=== PATIENT | male | born 1940 | race Caucasian/White ===

== ENCOUNTER 2017-06-13 15:02 | Emergency (ER) | payer MEDICARE, BC ==
[~2017-06-13] VITALS: Ht 175.3 cm; Wt 81.8 kg
[~2017-06-13 15:02] MED LIST: AVODART 0.5MG0.5 MG PO; CAPOTEN100 MG PO; COUMADIN 77.5 MG/TAB PO; FLOMAX 0.40.4 MG/CAP PO; GLUCOPHAGE1000 MG PO; GLUCOTROL 5M5 MG/TAB PO; LASIX 40MG TABL40 MG PO; NORVASC 10MG10 MG PO; PERCOCET 325 MG1 TA2 PO; XALATAN EYE DROPS OD; ZOCOR 20MG20 MG PO; ZOFRAN 4MG T4 MG/TAB PO
[2017-06-13 15:07] VITALS: TEMP 97.1
[2017-06-13 15:32] LABS: MEAN CELL VOLUME 102 fl (80.0-100.0); MEAN CORPUSCULAR HGB CONC 32 g/dl (33.0-37.0); MEAN PLATELET VOLUME 9.7 fl (7.4-10.4); PLATELET COUNT 272 K/mm3 (130-400); RED BLOOD COUNT 3.15 M/mm3 (4.20-5.60)
[2017-06-13 15:37] LABS: HEMOGLOBIN 10.2 g/dl (13.5-18.0); MEAN CORPUSCULAR HEMOGLOBIN 32 pg (27.0-31.0)
[2017-06-13 15:38] LABS: ADD PATHOLOGY DIFF REVIEW NO; WHITE BLOOD COUNT 32.4 K/mm3 (4.8-10.8)
[2017-06-13 15:43] LABS: INR 2.9 (0.8-3.0); PROTHROMBIN TIME 33.1 SECONDS (9.7-12.8)
[2017-06-13 15:50] LABS: ADJUSTED CALCIUM 8.8 mg/dL (8.4-10.2); ALBUMIN 4.6 gm/dL (3.5-5.0); ANISOCYTOSIS 3+; BAND 1 % (0-10); BILIRUBIN,TOTAL 0.7 mg/dL (0.0-1.0); CALCIUM 9.3 mg/dL (8.4-10.2); CREATININE, serum 0.91 mg/dL (0.66-1.25); LYMPHOCYTE 88 % (20.0-51.0); NEUTROPHILS 11 % (42.0-75.2); PLATELET ESTIMATE NORMAL (NORMAL); POIKILOCYTOSIS 2+; POTASSIUM 4.4 mmol/L (3.4-5.0); TOTAL CELLS COUNTED 100
[2017-06-13 16:02] LABS: TROPONIN-I 0.017 ng/mL (0.000-0.034)
[2017-06-13] MEDS ORDERED: NORVASC 10MG10 MG PO (16:20)
[2017-06-13] MEDS ORDERED: COREG 6.256.25 MG/TA PO (16:21)
[2017-06-13] MEDS ORDERED: PLAVIX 75MG TAB75 MG PO (16:22)
[2017-06-13] MEDS ORDERED: VASOTEC 10M10 MG/TAB PO (17:55)
[2017-06-13] MEDS ORDERED: LASIX 40MG TABL40 MG PO (17:56)
[2017-06-13 20:04] VITALS: BP 173/106; PULSE 80
== END 2017-06-13 20:06 | disposition short-term general hospital (02) ==
LOC: COL.ER 15:02
PROVIDERS: Family Medicine
DX: R06.02 Shortness of breath (principal); R06.2 Wheezing; C76.0 Malignant neoplasm of head, face and neck
CPT/HCPCS: A4314; J1940; J2270

== ENCOUNTER → 2019-02-12 | Outpatient (CLI) | payer MEDICARE, BC ==
[~2019-02-12] MED LIST changes: +COREG 6.256.25 MG/TA PO; +MAGNESIUM250 M1 PO; +PLAVIX 75MG TAB75 MG PO; +VASOTEC 10M10 MG/TAB PO; +ZOCOR 40MG40 MG PO
== END ==
LOC: COL.RAD 09:57
DX: C76.0 Malignant neoplasm of head, face and neck (principal); E11.9 Type 2 diabetes mellitus without complications; M46.82 Other specified inflammatory spondylopathies, cervical region; M50.21 Other cervical disc displacement, high cervical region; I51.7 Cardiomegaly; J98.4 Other disorders of lung; M89.9 Disorder of bone, unspecified; R16.1 Splenomegaly, not elsewhere classified; K80.20 Calculus of gallbladder without cholecystitis without obstruction; M43.17 Spondylolisthesis, lumbosacral region; Z95.2 Presence of prosthetic heart valve; Z98.890 Other specified postprocedural states; Z95.9 Presence of cardiac and vascular implant and graft, unspecified
CPT/HCPCS: Q9967